=== PATIENT | male | born 1990 | race Hispanic/Latino ===

== ENCOUNTER 2016-08-25 07:47 | Emergency (ER) | payer OTHER ==
[2016-08-25 07:52] VITALS: O2SAT 99; BMI 22.0
--- NOTE | 2016-08-25 08:02 | ED PDOC ---
HPI: General Adult Time Seen by Provider: 08/25/16 07:54 Chief Complaint (Provider): hand pain History Per: Patient History/Exam Limitations: no limitations Additional Complaint(s): 25yo male was playing softball last night when attempted to catch the ball but the ball flew directly into the tip of the right 4th digit, causing immediate pain and numbness. States the right 4th finger did not bend back. Patient continued to play however became concerned after he noted right 4th finger swelling this morning. Right hand dominant. Past Medical History Reviewed: Historical Data, Nursing Documentation, Vital Signs Vital Signs: Last Vital Signs Temp 96.7 F L 08/25/16 07:52 Pulse 71 08/25/16 07:52 Resp 20 08/25/16 07:52 BP 140/93 H 08/25/16 07:52 Pulse Ox 99 08/25/16 08:09 - Medical History PMH: Bipolar Disorder (taking lithium, lamictal daily. states he hasn't had any symptoms in 5-6 yr) - Surgical History Surgical History: No Surg Hx - Family History Family History: States: Unknown Family Hx - Home Medications Home Medications: Ambulatory Orders Medication Instructions Recorded Naproxen [Naprosyn] 500 mg PO Q12H #20 tab 08/25/16 - Allergies Allergies/Adverse Reactions: Allergies Allergy/AdvReac Type Severity Reaction Status Date / Time cephalexin [From Keflex] Allergy RASH Verified 08/25/16 08:10 Sulfa (Sulfonamide Allergy RASH Verified 08/25/16 08:10 Antibiotics) Review of Systems Musculoskeletal: Positive for: Hand Pain Physical Exam - Reviewed Nursing Documentation Reviewed: Yes Vital Signs Reviewed: Yes - Physical Exam Appears: Positive for: Well, Non-toxic, No Acute Distress Head Exam: Positive for: ATRAUMATIC, NORMAL INSPECTION, NORMOCEPHALIC Skin: Positive for: Warm, Dry Extremity: Positive for: Other (ecchymosis and swelling distal phalanx right ring finger. able to extend and flex against resistance. no subungual hematoma. ) - ECG O2 Sat by Pulse Oximetry: 99 (RA) Pulse Ox Interpretation: Normal Medical Decision Making Medical Decision Makin Impression tendon injury vs fracture Plan: XR Right Hand reassess Disposition - Clinical Impression Clinical Impression: Finger fracture - Patient ED Disposition Is Patient to be Admitted: No Counseled Patient/Family Regarding: Studies Performed, Diagnosis, Need For Followup, Rx Given - Disposition Referrals: Jose R Dee MD [Staff Provider] - Disposition: Routine/Home Disposition Time: 08:37 Condition: FAIR Prescriptions: Naproxen [Naprosyn] 500 mg PO Q12H #20 tab Instructions: Finger Fracture (ED) Additional Comments - Additional Comments Additional Comments: Scribe Attestation: Documented by Bulmaro Daley acting as a scribe for Vern Albright MD. Provider Scribe Attestation: All medical record entries made by the Scribe were at my direction and personally dictated by me. I have reviewed the chart and agree that the record accurately reflects my personal performance of the history, physical exam, medical decision making, and the department course for this patient. I have also personally directed, reviewed, and agree with the discharge instructions and disposition.
[2016-08-25 08:40] VITALS: BP 130/75; PULSE 75; RESP 18; TEMP 98.6
--- NOTE | 2016-08-25 10:08 | RAD ---
PROCEDURE: Right Hand Radiographs. HISTORY: trauma COMPARISON: None. FINDINGS: BONES: There is a comminuted fractured distal tuft distal phalanx 4th finger Incidental note made of a small rounded lucency within the distal aspect of the navicular that could represent trabeculation artifact however the possibility of a small benign cyst not excluded. JOINTS: Normal. No osteoarthritic changes. SOFT TISSUES: Normal. OTHER FINDINGS: None. IMPRESSION: Comminuted fracture distal tuft distal 4th finger. Note that this report was placed in PA review folder for followup
== END 2016-08-25 08:58 | disposition home or self-care (01) ==
LOC: H.ER 07:47
DX: S62.604A Fracture of unspecified phalanx of right ring finger, initial encounter for closed fracture (principal); X50.9XXA Other and unspecified overexertion or strenuous movements or postures, initial encounter; Y92.89 Other specified places as the place of occurrence of the external cause; F31.9 Bipolar disorder, unspecified

== ENCOUNTER 2018-01-31 22:00 | Emergency (ER) | payer BC, OTHER ==
[2018-01-31 22:01] VITALS: BMI 22.0
[2018-01-31 22:11] VITALS: BP 123/75; PULSE 63; RESP 17; TEMP 98.2; O2SAT 98
--- NOTE | 2018-01-31 22:18 | ED PDOC ---
HPI: Eye Injury/Pain Chief Complaint (Provider): eye pain History Per: Patient Additional Complaint(s): 27-year-old male presents with irritation to left eye since removing contact lens last night. He has had excessive tearing and slight blurry vision. Patient is currently not wearing contact lens area and he denies any symptoms to right eye. No associated headache, dizziness, nausea or vomiting. PMD: none <Marcelle Javier - Last Filed: 01/31/18 23:19> <Lexus Ghotra - Last Filed: 02/03/18 09:35> Time Seen by Provider: 01/31/18 22:16 Chief Complaint (Nursing): Eye Problem Supervising Attending Note - Attestation: I have personally seen and examined this patient.: No I have reviewed all pertinent clinical information, including history, physical exam and plan: Yes <Lexus Ghotra - Last Filed: 02/03/18 09:35> Past Medical History Reviewed: Historical Data, Nursing Documentation, Vital Signs Vital Signs: Last Vital Signs Temp 98.2 F 01/31/18 22:08 Pulse 63 01/31/18 22:08 Resp 17 01/31/18 22:08 BP 123/75 01/31/18 22:08 Pulse Ox 98 01/31/18 22:08 - Medical History PMH: Bipolar Disorder - Family History Family History: States: No Known Family Hx - Living Arrangements Living Arrangements: With Friends/Others - Social History Current smoker - smoking cessation education provided: No Alcohol: Social Drugs: Denies <Marcelle Javier - Last Filed: 01/31/18 23:19> Vital Signs: Last Vital Signs Temp 98.2 F 01/31/18 22:08 Pulse 63 01/31/18 22:08 Resp 17 01/31/18 22:08 BP 123/75 01/31/18 22:08 Pulse Ox 98 01/31/18 23:23 <Lexus Ghotra - Last Filed: 02/03/18 09:35> - Home Medications Home Medications: Ambulatory Orders Medication Instructions Recorded Naproxen [Naprosyn] 500 mg PO Q12H #20 tab 08/25/16 RX: Tobramycin [Tobrex] 5 ml TOP QID #1 bottle 01/31/18 - Allergies Allergies/Adverse Reactions: Allergies Allergy/AdvReac Type Severity Reaction Status Date / Time cephalexin [From Keflex] Allergy RASH Verified 01/31/18 22:11 Sulfa (Sulfonamide Allergy RASH Verified 01/31/18 22:11 Antibiotics) Review of Systems ROS Statement: Except As Marked, All Systems Reviewed And Found Negative Constitutional: Negative for: Fever Eyes: Positive for: Other (left eye discomfort) <SharadvalentinaMarcelle - Last Filed: 01/31/18 23:19> Physical Exam - Reviewed Nursing Documentation Reviewed: Yes Vital Signs Reviewed: Yes - Physical Exam Appears: Positive for: Well, Non-toxic, No Acute Distress Skin: Positive for: Normal Color. Negative for: Rash Eye Exam: Positive for: Normal appearance, Other (Diffuse conjunctival injection noted to left eye, no gross foreign body, no periorbital swelling or erythema, right ear within normal limits) Neurologic/Psych: Positive for: Alert, Oriented <SharadvalentinaMarcelle - Last Filed: 01/31/18 23:19> - ECG O2 Sat by Pulse Oximetry: 98 Pulse Ox Interpretation: Normal <SharadvalentinaMarcelle - Last Filed: 01/31/18 23:19> Medical Decision Making Medical Decision Makin27 y/o with left eye discomfort Patient declined pain medications in ED. Visual acuity with glasses: Left eye 20/40 Right eye 20/30 B/l 20/35 Patient was given prescription for tobramycin eyedrops, advised NSAIDs for pain as needed and sac menses for 7-10 days. patient was instructed to follow-up in one to 2 days with wire stripper. <SharadvalentinaMarcelle - Last Filed: 01/31/18 23:19> Disposition - Patient ED Disposition Is Patient to be Admitted: No Counseled Patient/Family Regarding: Diagnosis, Need For Followup, Rx Given - Disposition Disposition: Routine/Home Disposition Time: 22:53 <Marcelle Javier - Last Filed: 01/31/18 23:19> <Lexus Ghotra - Last Filed: 02/03/18 09:35> - Clinical Impression Clinical Impression: Conjunctivitis of left eye - Disposition Referrals: Floyd Deal MD [Staff Provider] - Condition: STABLE Additional Instructions: Apply drops as directed. Ibuprofen for pain as needed. Refrain from use of contact lenses for at least 7-10 days. Follow up with content production specialist if symptoms persist. Prescriptions: RX: Tobramycin [Tobrex] 5 ml TOP QID #1 bottle Instructions: Contact Lens Care, Conjunctivitis (Noninfectious [place]) Forms: [employer] ([place])
== END 2018-01-31 23:11 | disposition home or self-care (01) ==
LOC: H.ER 22:00
DX: H10.9 Unspecified conjunctivitis (principal)